=== PATIENT | female | born 1985 | race Caucasian/White ===

== ENCOUNTER 2020-09-28 13:54 | Emergency (ER) | payer BC ==
[2020-09-28] MEDS ORDERED: SODIUM CHLORIDE 0.9% 1000ML 1,000 ML IVS ONE (14:45)
--- NOTE | 2020-09-28 15:08 | CT ---
Study: CT abdomen and pelvis. Indication: possible left kidney stone Technique: CT of the abdomen and pelvis obtained without intravenous contrast. This exam was performed according to our departmental dose-optimization program, which includes automated exposure control, adjustment of the mA and/or kV according to patient size and/or use of iterative reconstruction technique. Comparison: None Findings: Lower chest, liver, gallbladder, pancreas, spleen, adrenal glands, bladder, uterus, and bilateral adnexa demonstrate a normal unenhanced CT appearance. Small-volume free pelvic fluid. No hydronephrosis or nephrolithiasis. Mild constipation. Appendix, stomach, small bowel unremarkable. No free air. No pathologically enlarged lymphadenopathy. 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 Impression: No hydronephrosis or nephrolithiasis. Mild constipation. 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 Electronically signed by: Denny Roche MD 09/28/2020 3:06 PM [facility]
--- NOTE | 2020-09-28 15:19 | ED.PDOC ---
History of Present Illness - General Chief Complaint: Problem Stated Complaint: UTI symptoms Time Seen by Provider: 09/28/20 14:01 Source: patient Exam Limitations: no limitations - History of Present Illness Initial Comments: The patient is a 34-year-old female presented emergency room secondary to flank pain and urinary symptoms for about the last week to 10 days. The patient has been on several antibiotics over the course. She reported that she had a sharp stabbing pain approximately 4 days ago in her left flank that largely resolved. She is not been passing any gross blood but she did have dysuria for a few days within the last week. No syncope or near syncope. No fever. No vomiting. Timing/Duration: 1 week Severity: moderate Improving Factors: nothing Worsening Factors: nothing Associated Symptoms: loss of appetite, malaise Allergies/Adverse Reactions: Allergies NO KNOWN ALLERGY Allergy (Verified 09/28/20 14:12) Review of Systems - Review of Systems Constitutional: States: malaise EENTM: States: no symptoms reported Respiratory: States: no symptoms reported Cardiology: States: no symptoms reported Gastrointestinal/Abdominal: States: see HPI Genitourinary: States: see HPI, frequency Musculoskeletal: States: back pain Skin: States: no symptoms reported Neurological: States: no symptoms reported Endocrine: States: no symptoms reported All other Systems: No Change from Baseline Past Medical History (General) - Patient Medical History Hx Cancer: Yes - melanoma of skin - Activities of Daily Living Hospice Agency (if applicable):: None - Female History Patient is a Female of Child Bearing Age (10 -59 yrs old): Yes Family Medical History - Family History Mother Living Status: Still Living Physical Exam - Physical Exam General Appearance: Alert, Comfortable, No apparent distress Eye Exam: bilateral normal Ears, Nose, Throat: hearing grossly normal, normal pharynx Neck: full range of motion, supple Respiratory: lungs clear, normal breath sounds, no respiratory distress, no accessory muscle use Cardiovascular/Chest: normal peripheral pulses, regular rate, rhythm, no edema Peripheral Pulses: radial,right: 2+, radial,left: 2+ Gastrointestinal/Abdominal: non tender, soft Rectal Exam: deferred Back Exam: no CVA tenderness, no vertebral tenderness Extremity: non-tender, normal inspection, no pedal edema, normal capillary refill 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 The patient has undergone 2 rounds of antibiotics at this point. Concern was present for persistent infection versus possible kidney stone. Urinalysis is clear with the exception of a small amount of red blood cells. This can certainly indicate an infection that has largely cleared or a stone that has already passed. CT scan of the abdomen pelvis only showed constipation but no indication of any stone. The patient needs to keep her self well-hydrated. She was given a dose of milk of magnesia here today for constipation and I would recommend that she take MiraLAX daily for the next 2 or 3 days. It is certainly possible that the constipation may be giving her flank pain as well. She should complete the course of the last antibiotic. ER warnings are given for any significant worsening. She does need to have a repeat urinalysis performed in about 10 days to 2 weeks to confirm clearance of red blood cells. jonas rouse [id number] - Results/Orders Results/Orders: CT scan of the abdomen pelvis without contrast shows no obvious acute pathology aside from moderate constipation. See report for details. Laboratory Results - last 24 hr 09/28/20 09/28/20 09/28/20 14:00 14:00 14:20 WBC 7.6 RBC 4.46 Hgb 13.1 Hct 38.0 MCV 85.2 MCH 29.4 MCHC 34.6 RDW 12.8 Plt Count 232 MPV 8.3 Absolute Neuts (auto) 5.60 Absolute Lymphs (auto) 1.60 Absolute Monos (auto) 0.40 Absolute Eos (auto) 0.00 Absolute Basos (auto) 0.10 Neutrophils % 73.0 Lymphocytes % 20.3 Monocytes % 5.3 Eosinophils % 0.4 L Basophils % 1.0 Sodium Potassium Chloride Carbon Dioxide Anion Gap BUN Creatinine BUN/Creatinine Ratio Random Glucose Serum Osmolality Calcium Total Bilirubin AST ALT Alkaline Phosphatase Serum Total Protein Albumin Globulin Albumin/Globulin Ratio Amylase Lipase Urine Color Yellow Urine Appearance Clear Urine pH 7.0 Ur Specific [place] 1.015 Urine Protein Negative Urine Glucose (UA) Negative Urine Ketones Negative Urine Blood Moderate H Urine Nitrite Negative Urine Bilirubin Negative Urine Urobilinogen 0.2 Ur Leukocyte Esterase Negative Urine RBC 20-30 H Urine WBC 0-1 Ur Epithelial Cells 1-3 Urine Bacteria 0 Urine HCG, Qual Negative 09/28/20 14:24 WBC RBC Hgb Hct MCV MCH MCHC RDW Plt Count MPV Absolute Neuts (auto) Absolute Lymphs (auto) Absolute Monos (auto) Absolute Eos (auto) Absolute Basos (auto) Neutrophils % Lymphocytes % Monocytes % Eosinophils % Basophils % Sodium 138 Potassium 4.1 Chloride 103 Carbon Dioxide 23 Anion Gap 16.1 BUN 13 Creatinine 0.68 BUN/Creatinine Ratio 19.1 Random Glucose 95 Serum Osmolality 275.6 Calcium 9.8 Total Bilirubin 0.8 AST 25 ALT 24 Alkaline Phosphatase 30 L Serum Total Protein 7.7 Albumin 4.6 Globulin 3.1 Albumin/Globulin Ratio 1.5 Amylase 70 Lipase 27 Urine Color Urine Appearance Urine pH Ur Specific [place] Urine Protein Urine Glucose (UA) Urine Ketones Urine Blood Urine Nitrite Urine Bilirubin Urine Urobilinogen Ur Leukocyte Esterase Urine RBC Urine WBC Ur Epithelial Cells Urine Bacteria Urine HCG, Qual Departure - Departure Clinical Impression: Hematuria Qualifiers: Hematuria type: unspecified type Qualified Code(s): R31.9 - Hematuria, unspecified Constipation Qualifiers: Constipation type: unspecified constipation type Qualified Code(s): K59.00 - Constipation, unspecified Disposition: Discharge to Home or Self Care Condition: Fair Departure Forms: ED Discharge - Pt. Copy, Patient Portal Self Enrollment Instructions: Constipation, Adult (DC) Diet: regular diet - High-fiber Activity: increase activity as tolerated Referrals: Elaine Hartman MD [Primary Care Provider] - 1-2 Weeks Additional Instructions: The patient is a 34-year-old female presented emergency room secondary to left flank pain and urinary symptoms for around a week. The patient has undergone 2 rounds of antibiotics at this point. Concern was present for persistent infection versus possible kidney stone. Urinalysis is clear with the exception of a small amount of red blood cells. This can certainly indicate an infection that has largely cleared or a stone that has already passed. CT scan of the abdomen pelvis only showed constipation but no indication of any stone. The patient needs to keep her self well-hydrated. She was given a dose of milk of magnesia here today for constipation and I would recommend that she take MiraLAX daily for the next 2 or 3 days. It is certainly possible that the constipation may be giving her flank pain as well. She should complete the course of the last antibiotic. ER warnings are given for any significant worsening. She does need to have a repeat urinalysis performed in about 10 days to 2 weeks to confirm clearance of red blood cells.
[2020-09-28] MEDS ORDERED: MAGNESIUM HYDROXIDE 30 ML UD PO ONE (15:23)
[2020-09-28 16:03] VITALS: BP 136/83; TEMP 98.2; O2SAT 100
== END 2020-09-28 15:55 | disposition home or self-care (01) ==
LOC: ER 13:54
DX: K59.00 Constipation, unspecified (principal); R31.9 Hematuria, unspecified; R30.0 Dysuria; R10.9 Unspecified abdominal pain; R35.0 Frequency of micturition